=== PATIENT | female | born 1970 | race Caucasian/White ===

== ENCOUNTER 2016-07-22 12:50 | Emergency (ER) | payer MEDICAID, OTHER ==
[2016-07-22] MEDS ORDERED: Acetaminophen/Codeine 30-300mg Tablet ONE (14:16)
--- NOTE | 2016-07-22 14:42 | RAD ---
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 FINDINGS: Mild superior joint space narrowing. Mild inferior osteophyte formation is seen involving the left s acroiliac joint. No displaced fracture or dislocation. IMPRESSION: No acute osseous abnormality. POS: [facility]
--- NOTE | 2016-07-22 14:43 | RAD ---
FRONTAL RADIOGRAPH PELVIS: Date: 07-22-16 Comparison: None. 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 FINDINGS: There is no widening of the sacroiliac joints or pubic symphysis. The femoral heads project normally over their respective acetabulum. No displaced fracture. IMPRESSION: No acute osseous abnormality. POS: [facility]
== END 2016-07-22 15:02 | disposition home or self-care (01) ==
LOC: MADERS 12:50
DX: S70.02XA Contusion of left hip, initial encounter (principal); E03.9 Hypothyroidism, unspecified; I10 Essential (primary) hypertension; F31.9 Bipolar disorder, unspecified; F41.9 Anxiety disorder, unspecified; W19.XXXA Unspecified fall, initial encounter
CPT/HCPCS: 72170